=== PATIENT | male | born 1970 | race American Indian/Alaskan Native ===

== ENCOUNTER 2017-04-14 22:25 | Emergency (ER) | payer OTHER ==
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
[2017-04-15] MEDS ORDERED: FLEXERIL PO ONE (02:22)
[2017-04-15] MEDS ORDERED: NORCO 5/325 PO ONE (02:22)
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
[2017-04-15 04:10] VITALS: BP 106/68
== END 2017-04-15 04:10 | disposition home or self-care (01) ==
LOC: ED 22:25
DX: S16.1XXA Strain of muscle, fascia and tendon at neck level, initial encounter (principal); M50.33 Other cervical disc degeneration, cervicothoracic region; M25.511 Pain in right shoulder; M54.6 Pain in thoracic spine; V49.59XA Passenger injured in collision with other motor vehicles in traffic accident, initial encounter; Y93.9 Activity, unspecified; Y92.9 Unspecified place or not applicable; Y99.9 Unspecified external cause status
CPT/HCPCS: 72040; 72072; 99283

== ENCOUNTER 2017-04-23 07:59 | Emergency (ER) | payer SELFPAY ==
[2017-04-23 11:22] VITALS: BP 130/92
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
== END 2017-04-23 11:19 | disposition home or self-care (01) ==
LOC: ED 07:59
DX: L02.31 Cutaneous abscess of buttock (principal)
CPT/HCPCS: 99283

== ENCOUNTER 2017-08-15 00:32 | Emergency (ER) | payer SELFPAY ==
[2017-08-15 01:05] VITALS: BP 146/101
[2017-08-15] MEDS ORDERED: NORCO 5/325 ONE (02:17)
[2017-08-15] MEDS ORDERED: TORADOL ONE (02:17)
[2017-08-15] MEDS ORDERED: NORCO 5/325 PO ONE (02:22)
[2017-08-15] MEDS ORDERED: TORADOL IM ONE (02:22)
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
== END 2017-08-15 04:00 | disposition home or self-care (01) ==
LOC: ED 00:32
DX: K02.9 Dental caries, unspecified (principal); K04.7 Periapical abscess without sinus
CPT/HCPCS: 96372; 99283; J1885